=== PATIENT | female | born 1970 | race American Indian/Alaskan Native ===

== ENCOUNTER 2016-10-03 02:27 | Emergency (ER) | payer BC, OTHER ==
[~2016-10-03] VITALS: Ht 152.4 cm; Wt 100.3 kg
[2016-10-03 02:28] VITALS: BP 122/82
[2016-10-03] MEDS ORDERED: PREG50CA PO (03:04)
[2016-10-03] MEDS ORDERED: OXYC5CAP4 PO (03:13)
[2016-10-03] MEDS ORDERED: NORT10CA PO (03:14)
[2016-10-03] MEDS ORDERED: SODIUM CHLORIDE 0.9% 1,000ML IVBOLUS ONE (03:30)
[2016-10-03] MEDS ORDERED: MAALOX/HYOSCYAMINE/LIDOCAINE 45 ML BOTTLE PO ONE ×2 (03:30→06:30)
[2016-10-03] MEDS ORDERED: FAMOTIDINE 20 MG/2 ML IVP ONE (03:30)
[2016-10-03] MEDS ORDERED: SODIUM CHLORIDE FLUSH 10ML SYR IVF ONE ×2 (03:30→05:00)
[2016-10-03] MEDS ORDERED: MAALOX/HYOSCYAMINE/LIDOCAINE 45 ML BOTTLE ONE ×2 (03:32→06:41)
[2016-10-03] MEDS ORDERED: FAMOTIDINE 20 MG/2 ML ONE (03:32)
[2016-10-03 04:06] LABS: ASPARTATE AMINO TRANSFERASE 7 U/L (15-37); BLOOD UREA NITROGEN 9 mg/dL (7-18)
[2016-10-03] MEDS ORDERED: OMNIPAQUE 350 MG/ML, 100ML BOTTLE ONE (05:43)
[2016-10-03 06:12] LABS: HCG UR OBC PASS
== END 2016-10-03 06:52 | disposition home or self-care (01) ==
LOC: ED 06:46
DX: K29.00 Acute gastritis without bleeding (principal); K21.9 Gastro-esophageal reflux disease without esophagitis; E11.9 Type 2 diabetes mellitus without complications
CPT/HCPCS: 36415; 74177; 80053; 81001; 81025; 83690; 85025; 87086; 93005; 96361; 96374; 99285; J7030; Q9967; S0028